=== PATIENT | female | born 1975 | race Caucasian/White ===

== ENCOUNTER 2016-09-30 23:34 | Emergency (ER) | payer BC ==
[~2016-09-30] VITALS: Ht 170.2 cm; Wt 79.0 kg
[2016-10-01 00:33] VITALS: BP 97/79
== END 2016-10-01 00:30 | disposition home or self-care (01) ==
LOC: ED 23:37
DX: M25.571 Pain in right ankle and joints of right foot (principal)
CPT/HCPCS: 73610; 99282